=== PATIENT | female | born 1990 | race Caucasian/White ===

== ENCOUNTER → 2019-10-10 09:32 | Outpatient (CLI) | payer BC, MEDICAID, SELFPAY ==
[2019-10-12 16:52] LABS: HPV Reflexed? NOT INDICATED
== END ==
PROVIDERS: Visit Provider Obstetrics & Gynecology
DX: Z12.4 Encounter for screening for malignant neoplasm of cervix (principal)
CPT/HCPCS: 88175; G0145

== ENCOUNTER → 2021-07-21 | Outpatient (CLI) | payer OTHER, MEDICAID, SELFPAY ==
[2021-07-27 17:40] LABS: HPV Reflexed? NOT INDICATED
== END | disposition home or self-care (01) ==
LOC: LABSPEC 07-22 10:11
PROVIDERS: Visit Provider Obstetrics & Gynecology
DX: Z12.4 Encounter for screening for malignant neoplasm of cervix (principal)
CPT/HCPCS: 88175; G0145